=== PATIENT | female | born 1985 | race Caucasian/White ===

== ENCOUNTER 2018-05-20 18:17 | Emergency (ER) | payer MEDICAID ==
[~2018-05-20] VITALS: Ht 162.6 cm; Wt 86.2 kg
[~2018-05-20 18:17] MED LIST: AZIT-63 PO; IBUP-1984 PO; MECL-111 PO; NO HOME MEDS; ONDA4TAB59 PO
[2018-05-20 18:29] VITALS: BP 116/75
[2018-05-20] MEDS ORDERED: ipratropium/albuterol 3ml nebule NEB ONE (19:30)
[2018-05-20] MEDS ORDERED: predniSONE 20 mg tablet PO ONE (19:30)
[2018-05-20] MEDS ORDERED: ALBU6.7H INH (19:52)
[2018-05-20] MEDS ORDERED: GUAI120015 PO (19:52)
[2018-05-20] MEDS ORDERED: PRED20TA PO (19:52)
[2018-05-20] MEDS ORDERED: AZIT250T PO (19:53)
== END 2018-05-20 20:04 | disposition home or self-care (01) ==
LOC: ER 18:18
DX: J06.9 Acute upper respiratory infection, unspecified (principal); J45.909 Unspecified asthma, uncomplicated; R05 Cough; G43.909 Migraine, unspecified, not intractable, without status migrainosus; Z98.890 Other specified postprocedural states; Z79.899 Other long term (current) drug therapy; Z88.0 Allergy status to penicillin; Z88.2 Allergy status to sulfonamides; Z88.5 Allergy status to narcotic agent; Z91.040 Latex allergy status; Z88.1 Allergy status to other antibiotic agents; Z87.01 Personal history of pneumonia (recurrent)
CPT/HCPCS: 71045; 93005; 94640; 94760; 99283; J7512

== ENCOUNTER 2018-10-19 23:04 | Emergency (ER) | payer MEDICAID ==
[~2018-10-19] VITALS: Ht 162.6 cm; Wt 86.6 kg
[~2018-10-19 23:04] MED LIST changes: +ALBU6.7H INH; +AZIT250T PO; +BENZ-16 PO; +GUAI120015 PO
[2018-10-20] MEDS ORDERED: ibuprofen tablet 400 MG TABLET PO ONE (00:35)
[2018-10-20] MEDS ORDERED: NAPR-56 PO (00:58)
[2018-10-20 01:07] VITALS: BP 107/73
== END 2018-10-20 01:08 | disposition home or self-care (01) ==
LOC: ER 23:04
DX: M20.011 Mallet finger of right finger(s) (principal); G43.909 Migraine, unspecified, not intractable, without status migrainosus; Z98.890 Other specified postprocedural states; Z88.0 Allergy status to penicillin; Z88.2 Allergy status to sulfonamides; Z88.5 Allergy status to narcotic agent; Z91.040 Latex allergy status; Z88.1 Allergy status to other antibiotic agents; Z79.899 Other long term (current) drug therapy; W19.XXXA Unspecified fall, initial encounter; Y93.64 Activity, baseball; Y92.89 Other specified places as the place of occurrence of the external cause; Y99.8 Other external cause status
CPT/HCPCS: 29130; 73130; 73140; 99283

== ENCOUNTER 2018-11-07 09:06 | Outpatient (CLI) | payer MEDICAID ==
[2018-11-07 09:06] VITALS: BP 108/72
== END 2018-11-07 10:03 | disposition home or self-care (01) ==
LOC: ORTHO 09:06
PROVIDERS: ATTEND Orthopaedic Surgery
DX: M79.641 Pain in right hand (principal); J45.909 Unspecified asthma, uncomplicated; F17.210 Nicotine dependence, cigarettes, uncomplicated; Z88.0 Allergy status to penicillin; Z88.2 Allergy status to sulfonamides; Z88.5 Allergy status to narcotic agent; Z91.040 Latex allergy status; Z88.1 Allergy status to other antibiotic agents; Z91.030 Bee allergy status; Z91.048 Other nonmedicinal substance allergy status
CPT/HCPCS: 73130; G0463

== ENCOUNTER 2018-11-29 11:06 | Outpatient (CLI) | payer MEDICAID ==
[~2018-11-29 11:06] MED LIST changes: -ALBU6.7H INH; +ALBU6.7H9 INH
== END 2018-11-29 12:21 | disposition home or self-care (01) ==
LOC: ORTHO 11:06
PROVIDERS: ATTEND Orthopaedic Surgery
DX: M20.011 Mallet finger of right finger(s) (principal); Z09 Encounter for follow-up examination after completed treatment for conditions other than malignant neoplasm

== ENCOUNTER 2019-04-05 06:27 | Emergency (ER) | payer MEDICAID ==
[~2019-04-05] VITALS: Ht 162.6 cm; Wt 85.2 kg
[2019-04-05 06:32] VITALS: BP 125/85
[2019-04-05] MEDS ORDERED: ibuprofen tablet 400 MG TABLET PO ONE (06:55)
[2019-04-05] MEDS ORDERED: acetaminophen 325mg tablet PO ONE (06:55)
[2019-04-05] MEDS ORDERED: IBUP-1985 PO (06:56)
[2019-04-05] MEDS ORDERED: ACET-812 PO (06:56)
== END 2019-04-05 07:12 | disposition home or self-care (01) ==
LOC: ER 06:27
DX: S93.401A Sprain of unspecified ligament of right ankle, initial encounter (principal); G43.909 Migraine, unspecified, not intractable, without status migrainosus; Z98.890 Other specified postprocedural states; Z88.0 Allergy status to penicillin; Z88.2 Allergy status to sulfonamides; Z88.5 Allergy status to narcotic agent; Z91.040 Latex allergy status; Z79.899 Other long term (current) drug therapy; X50.1XXA Overexertion from prolonged static or awkward postures, initial encounter; Y93.89 Activity, other specified; Y92.89 Other specified places as the place of occurrence of the external cause; Y99.9 Unspecified external cause status
CPT/HCPCS: 73610; 73630; 99283

== ENCOUNTER 2021-04-07 18:43 | Emergency (ER) | payer MEDICAID ==
[~2021-04-07] VITALS: Ht 162.6 cm; Wt 89.0 kg
[~2021-04-07 18:43] MED LIST changes: +ACET-812 PO; -AZIT-63 PO; +AZIT-83 PO; +IBUP-1985 PO; -MECL-111 PO; +MECL-159 PO
[2021-04-07 19:14] VITALS: BP 147/92
== END 2021-04-07 19:40 | disposition home or self-care (01) ==
LOC: ER 18:44
DX: S60.311A Abrasion of right thumb, initial encounter (principal); S60.410A Abrasion of right index finger, initial encounter; M79.644 Pain in right finger(s); G43.909 Migraine, unspecified, not intractable, without status migrainosus; Z98.890 Other specified postprocedural states; Z88.0 Allergy status to penicillin; Z88.2 Allergy status to sulfonamides; Z88.5 Allergy status to narcotic agent; Z91.040 Latex allergy status; Z88.1 Allergy status to other antibiotic agents; Z79.2 Long term (current) use of antibiotics; Z79.899 Other long term (current) drug therapy; W19.XXXA Unspecified fall, initial encounter; Y93.89 Activity, other specified; Y92.89 Other specified places as the place of occurrence of the external cause; Y99.8 Other external cause status
CPT/HCPCS: 73130; 99283

== ENCOUNTER 2021-09-16 18:38 | Emergency (ER) | payer MEDICAID ==
[~2021-09-16] VITALS: Ht 162.6 cm; Wt 89.1 kg
--- NOTE | 2021-09-16 18:48 | NUR ---
Patient goes by "Bethel" as name.
[2021-09-16 21:09] VITALS: BP 134/97
[2021-09-16] MEDS ORDERED: dexamethasone sod phosphate 10mg/ml inj PO STA (21:22)
[2021-09-16] MEDS ORDERED: DOXYCYCLINE 100MG CAPSULE PO STA (21:22)
[2021-09-16] MEDS ORDERED: DOXY100C43 PO (21:29)
[2021-09-16] MEDS ORDERED: PRED20TA PO (21:29)
[2021-09-16] MEDS ORDERED: ALBU8.5H17 IH (21:29)
== END 2021-09-16 21:56 | disposition home or self-care (01) ==
LOC: ER 18:39
DX: J20.9 Acute bronchitis, unspecified (principal); G43.909 Migraine, unspecified, not intractable, without status migrainosus; F17.200 Nicotine dependence, unspecified, uncomplicated; Z88.0 Allergy status to penicillin; Z88.2 Allergy status to sulfonamides; Z88.5 Allergy status to narcotic agent; Z91.040 Latex allergy status; Z88.1 Allergy status to other antibiotic agents; Z79.899 Other long term (current) drug therapy
CPT/HCPCS: 71045; 99283; J1100

== ENCOUNTER 2022-03-24 15:53 | Emergency (ER) | payer MEDICAID ==
[~2022-03-24] VITALS: Ht 162.6 cm; Wt 90.0 kg
[~2022-03-24 15:53] MED LIST changes: +ALBU6.7H14 INH; -ALBU6.7H9 INH; +ALBU8.5H17 IH
[2022-03-24 16:02] VITALS: BP 132/89
== END 2022-03-24 16:56 | disposition home or self-care (01) ==
LOC: ER 15:55
DX: J20.9 Acute bronchitis, unspecified (principal); G43.909 Migraine, unspecified, not intractable, without status migrainosus; Z88.0 Allergy status to penicillin; Z88.2 Allergy status to sulfonamides; Z79.899 Other long term (current) drug therapy; Z88.5 Allergy status to narcotic agent; Z91.040 Latex allergy status; Z91.030 Bee allergy status
CPT/HCPCS: 71046; 99283

== ENCOUNTER 2022-08-22 21:54 | Emergency (ER) | payer MEDICAID ==
[~2022-08-22] VITALS: Ht 162.6 cm; Wt 87.2 kg
[2022-08-22 22:16] VITALS: BP 138/96
[2022-08-23] MEDS ORDERED: clindamycin 150mg capsule PO ONE (00:35)
[2022-08-23] MEDS ORDERED: ondansetron 4mg rapidly disintigrating tab PO ONE (00:35)
[2022-08-23] MEDS ORDERED: CLIN150C8 PO (00:35)
[2022-08-23] MEDS ORDERED: ACYC-128 PO (00:35)
== END 2022-08-23 01:18 | disposition home or self-care (01) ==
LOC: ER 21:55
DX: L03.114 Cellulitis of left upper limb (principal); R21 Rash and other nonspecific skin eruption; G43.909 Migraine, unspecified, not intractable, without status migrainosus; J45.909 Unspecified asthma, uncomplicated; Z88.0 Allergy status to penicillin; Z88.2 Allergy status to sulfonamides; Z79.899 Other long term (current) drug therapy; Z88.5 Allergy status to narcotic agent; Z91.040 Latex allergy status; Z79.1 Long term (current) use of non-steroidal anti-inflammatories (NSAID); Z79.2 Long term (current) use of antibiotics
CPT/HCPCS: 99283; 99284; A6449

== ENCOUNTER 2022-10-22 18:58 | Emergency (ER) | payer MEDICAID ==
[~2022-10-22] VITALS: Ht 165.1 cm; Wt 87.6 kg
[~2022-10-22 18:58] MED LIST changes: +CLIN150C8 PO
[2022-10-22 19:02] VITALS: BP 132/83
[2022-10-22] MEDS ORDERED: LIDOcaine 1% W/epiNEPHrine 1:100,000 20ml vial SQ STA (21:23)
[2022-10-22] MEDS ORDERED: CEPH500C2 PO (23:05)
[2022-10-22] MEDS ORDERED: cephalexin 500mg capsule PO ONE (23:10)
== END 2022-10-22 23:22 | disposition home or self-care (01) ==
LOC: ER 18:59
DX: L60.0 Ingrowing nail (principal); L03.031 Cellulitis of right toe; B35.1 Tinea unguium; G43.909 Migraine, unspecified, not intractable, without status migrainosus; J45.909 Unspecified asthma, uncomplicated; Z88.0 Allergy status to penicillin; Z88.2 Allergy status to sulfonamides
CPT/HCPCS: 11750; 99285; J3490

== ENCOUNTER 2023-06-11 12:38 | Emergency (ER) | payer BC ==
[~2023-06-11] VITALS: Ht 160 cm; Wt 80.0 kg
[~2023-06-11 12:38] MED LIST changes: +AZIT-164 PO; -AZIT-83 PO; +CLIN-214 PO; -CLIN150C8 PO; +DICL100G59 TOP; +IBUP-1986 PO; -MECL-159 PO; +MECL-302 PO
[2023-06-11] MEDS ORDERED: morphine 2 MG/ML inj. syringe IV ONE (17:00)
[2023-06-11] MEDS ORDERED: proCHLORperazine 10 MG/2 ml inj IV ONE (17:00)
[2023-06-11] MEDS ORDERED: ketorolac tromethamine 15mg/ml inj. IV ONE (17:00)
[2023-06-11] MEDS ORDERED: normal saline 1000ML IV soln IVB ONE (17:00)
[2023-06-11] MEDS ORDERED: SUMAtriptan succ. 6 MG/0.5ml vial SQ ONE (17:00)
[2023-06-11 17:52] VITALS: BP 147/95; PULSE 68; RESP 17; O2SAT 100
[2023-06-11] MEDS ORDERED: SUMA100T PO (18:37)
[2023-06-12 01:23] VITALS: TEMP 98.1
== END 2023-06-12 01:25 | disposition home or self-care (01) ==
LOC: ER 12:39
DX: G43.909 Migraine, unspecified, not intractable, without status migrainosus (principal); J45.909 Unspecified asthma, uncomplicated; Z88.0 Allergy status to penicillin; Z79.899 Other long term (current) drug therapy; Z88.2 Allergy status to sulfonamides; Z88.5 Allergy status to narcotic agent; Z79.1 Long term (current) use of non-steroidal anti-inflammatories (NSAID)
CPT/HCPCS: 96361; 96372; 96374; 96375; 99284; J0780; J1885; J2270; J3030; J7030

== ENCOUNTER 2023-09-02 18:33 | Emergency (ER) | payer BC ==
[~2023-09-02] VITALS: Ht 160 cm; Wt 82.0 kg
[2023-09-02 18:51] VITALS: BP 162/87; PULSE 100; RESP 18; TEMP 98.6; O2SAT 100
[2023-09-02 19:16] LABS: STREP A SCREEN NEGATIVE (Neg)
[2023-09-02] MEDS ORDERED: GUAI120015 PO (19:47)
[2023-09-02] MEDS ORDERED: SODI30SP3 BOTHNARES (19:47)
[2023-09-02] MEDS ORDERED: DOXY-224 PO (19:47)
== END 2023-09-02 20:00 | disposition home or self-care (01) ==
LOC: ER 18:33
DX: J01.90 Acute sinusitis, unspecified (principal); H92.02 Otalgia, left ear; Z20.822 Contact with and (suspected) exposure to COVID-19; J45.909 Unspecified asthma, uncomplicated; Z88.8 Allergy status to other drugs, medicaments and biological substances; Z88.0 Allergy status to penicillin; Z88.1 Allergy status to other antibiotic agents; Z91.040 Latex allergy status; Z88.5 Allergy status to narcotic agent; Z79.899 Other long term (current) drug therapy; Z79.2 Long term (current) use of antibiotics
CPT/HCPCS: 36415; 87081; 87811; 87880; 99283

== ENCOUNTER 2023-11-24 21:31 | Emergency (ER) | payer BC ==
[~2023-11-24] VITALS: Ht 160 cm; Wt 81.2 kg
[~2023-11-24 21:31] MED LIST changes: +SODI30SP3 BOTHNARES
[2023-11-24] MEDS ORDERED: DOXY-460 PO (23:12)
[2023-11-24 23:24] VITALS: BP 130/78; PULSE 86; RESP 18; TEMP 97.9; O2SAT 98
== END 2023-11-24 23:26 | disposition home or self-care (01) ==
LOC: ER 21:31
DX: B35.1 Tinea unguium (principal); M79.645 Pain in left finger(s); G43.909 Migraine, unspecified, not intractable, without status migrainosus; J45.909 Unspecified asthma, uncomplicated; Z88.0 Allergy status to penicillin; Z88.2 Allergy status to sulfonamides; Z88.5 Allergy status to narcotic agent; Z88.8 Allergy status to other drugs, medicaments and biological substances; Z91.040 Latex allergy status; Z88.1 Allergy status to other antibiotic agents; Z79.1 Long term (current) use of non-steroidal anti-inflammatories (NSAID); Z79.2 Long term (current) use of antibiotics; Z79.899 Other long term (current) drug therapy
CPT/HCPCS: 99283

== ENCOUNTER 2024-01-15 15:26 | Outpatient (CLI) | payer OTHER | END 2024-01-15 23:59 | disposition home or self-care (01) | LOC: MRI 15:26 | PROVIDERS: ATTEND Student in an Organized Health Care Education/Training Program | DX: M51.36 Other intervertebral disc degeneration, lumbar region (principal); M48.061 Spinal stenosis, lumbar region without neurogenic claudication; M54.50 Low back pain, unspecified | CPT/HCPCS: 72148 ==

== ENCOUNTER 2024-02-24 21:05 | Emergency (ER) | payer BC ==
[~2024-02-24] VITALS: Ht 160 cm; Wt 83.5 kg
[2024-02-24 21:34] LABS: BASOPHILS % (AUTO) 0.4 % (0-1); EOSINOPHILS # (AUTO) 0.1 X10'3 (0-0.9); EOSINOPHILS % (AUTO) 1.1 % (0-6); HEMATOCRIT 45.9 % (42.0-52.0); LYMPHOCYTES # (AUTO) 2.2 X10'3 (1.1-4.8); MEAN CORPUSCULAR HEMOGLOBIN 26.7 PG (27.0-31.0); MEAN CORPUSCULAR HGB CONC 32.7 g/dL (33.0-36.5); MEAN CORPUSCULAR VOLUME 81.6 FL (78-98); MEAN PLATELET VOLUME 7.9 FL (7.4-10.4); MONOCYTES # (AUTO) 0.5 X10'3 (0-0.9); MONOCYTES % (AUTO) 5.7 % (2-12); NEUTROPHILS # (AUTO) 5.9 X10'3 (1.8-7.7); NEUTROPHILS % (AUTO) 67.8 % (42-75); PLATELET COUNT 254 X10'3 (140-440); RED BLOOD COUNT 5.62 X10'6 (4.70-6.10); RED CELL DISTRIBUTION WIDTH 15.7 % (11.5-14.5); WHITE BLOOD COUNT 8.7 X10'3 (4.5-11.0)
[2024-02-24 21:39] LABS: BILIRUBIN,URINE NEGATIVE (Neg); CLARITY,URINE CLEAR (Clear); COLOR,URINE YELLOW (Yellow); GLUCOSE, URINE NEGATIVE (Neg); KETONES,URINE NEGATIVE (Neg); LEUKOCYTE ESTERASE ,URINE NEGATIVE (Neg); NITRITES, URINE NEGATIVE (Neg); OCCULT BLOOD,URINE NEGATIVE (Neg); PROTEIN,URINE NEGATIVE (Neg); UROBILINOGEN,URINE 0.2 E.U/dL (0.2-1.0)
[2024-02-24 21:42] LABS: UA COLLECTION TYPE CLN CATCH MIDSTREAM
[2024-02-24 21:52] LABS: ALANINE AMINOTRANSFERASE 24 U/L (12-78); ALBUMIN 3.8 G/DL (3.4-5.0); ALKALINE PHOSPHATASE 79 IU/L (46-116); ANION GAP 10 (8-16); ASPARTATE AMINO TRANSFERASE 15 U/L (10-37); BILIRUBIN,TOTAL 0.7 MG/DL (0.1-1.0); BLOOD UREA NITROGEN 13 MG/DL (7-18); BUN/CREATININE RATIO 6.5 (10.0-20.0); CALCIUM 8.5 MG/DL (8.5-10.1); CHLORIDE 107 MMOL/L (99-107); CREATININE 2.01 MG/DL (0.60-1.10); GLUCOSE 78 MG/DL (70-104); LIPASE 45 U/L (16-77); POTASSIUM 3.9 MMOL/L (3.5-5.1); SODIUM 142 MMOL/L (135-145); TOTAL CARBON DIOXIDE 24.7 MMOL/L (24-32); TOTAL PROTEIN 7.5 G/DL (6.4-8.2); eCRCL 40 ML/MIN; eGFR 37 ML/MIN
[2024-02-24] MEDS ORDERED: iohexol 300mg/ml 100ml inj. ONE (23:27)
[2024-02-24] MEDS: morphine 4 MG/ML inj SYRINge IV ONE (23:45)
[2024-02-24] MEDS: ondansetron/PF 4mg/2ml inj IV ONE (23:46)
[2024-02-25] MEDS ORDERED: NAPR-56 PO (03:39)
[2024-02-25] MEDS ORDERED: HYDR-3965 PO (03:39)
[2024-02-25 04:14] VITALS: BP 138/101; PULSE 92; RESP 17; TEMP 98.7; O2SAT 97
== END 2024-02-25 04:18 | disposition home or self-care (01) ==
LOC: ER 21:05
DX: N20.0 Calculus of kidney (principal); J45.909 Unspecified asthma, uncomplicated; Z88.0 Allergy status to penicillin; Z88.1 Allergy status to other antibiotic agents; Z88.2 Allergy status to sulfonamides; Z88.5 Allergy status to narcotic agent; Z88.6 Allergy status to analgesic agent; Z91.030 Bee allergy status
CPT/HCPCS: 36415; 74177; 80053; 81003; 83690; 85025; 96374; 96375; 99285; J2270; J2405; Q9967

== ENCOUNTER 2024-07-11 17:08 | Emergency (ER) | payer BC ==
[~2024-07-11] VITALS: Ht 160 cm; Wt 76.1 kg
[2024-07-11 17:13] VITALS: BP 152/94; PULSE 113; O2SAT 98
[2024-07-11 18:09] VITALS: RESP 16
[2024-07-11] MEDS: ketorolac trometh 15mg/ml vial 15 MG/ML ML IM ONE (18:09)
[2024-07-11 19:24] VITALS: TEMP 98.4
== END 2024-07-11 19:20 | disposition home or self-care (01) ==
LOC: ER 17:08
DX: M54.2 Cervicalgia (principal); R07.89 Other chest pain; J45.909 Unspecified asthma, uncomplicated; G43.909 Migraine, unspecified, not intractable, without status migrainosus; Z88.0 Allergy status to penicillin; Z88.1 Allergy status to other antibiotic agents; Z88.2 Allergy status to sulfonamides; Z88.5 Allergy status to narcotic agent; Z88.6 Allergy status to analgesic agent; Z91.030 Bee allergy status; V89.2XXA Person injured in unspecified motor-vehicle accident, traffic, initial encounter; Y93.89 Activity, other specified; Y92.89 Other specified places as the place of occurrence of the external cause; Y99.8 Other external cause status
CPT/HCPCS: 71045; 96372; 99283; J1885

== ENCOUNTER 2024-08-30 18:03 | Emergency (ER) | payer BC ==
[~2024-08-30] VITALS: Ht 160 cm; Wt 86.5 kg
[2024-08-30 18:18] VITALS: BP 134/94; PULSE 88; RESP 16; TEMP 97.5; O2SAT 99
== END 2024-08-30 19:30 | disposition home or self-care (01) ==
LOC: ER 18:04
DX: M25.512 Pain in left shoulder (principal); J45.909 Unspecified asthma, uncomplicated; G43.909 Migraine, unspecified, not intractable, without status migrainosus; F17.210 Nicotine dependence, cigarettes, uncomplicated; Z88.0 Allergy status to penicillin; Z88.2 Allergy status to sulfonamides; Z88.1 Allergy status to other antibiotic agents; Z88.5 Allergy status to narcotic agent; Z91.040 Latex allergy status; Z79.899 Other long term (current) drug therapy; V89.2XXA Person injured in unspecified motor-vehicle accident, traffic, initial encounter; Y93.89 Activity, other specified; Y92.89 Other specified places as the place of occurrence of the external cause; Y99.8 Other external cause status
CPT/HCPCS: 73030; 99283; A4565

== ENCOUNTER 2024-11-29 19:24 | Emergency (ER) | payer BC ==
[~2024-11-29] VITALS: Ht 160 cm; Wt 85.0 kg
[2024-11-29 19:44] VITALS: BP 148/92; PULSE 79; RESP 18; O2SAT 97
[2024-11-29 20:46] LABS: LEUKOCYTE ESTERASE ,URINE TRACE (Neg); NITRITES, URINE NEGATIVE (Neg); OCCULT BLOOD,URINE LARGE (Neg)
[2024-11-29 20:56] LABS: UA COLLECTION TYPE CLN CATCH MIDSTREAM
[2024-11-29 21:04] LABS: SQUAMOUS EPITHELIAL CELL,UR FEW /LPF (FEW)
--- NOTE | 2024-11-29 21:28 | Physician Documentation ---
History of Present Illness ~ Chief Complaint: Blood in Urine Stated Complaint: UTI SYMPTOMS Time Seen by MD: 20:32 Primary Medical Doctor: ANA GOLD HPI 39-year-old female to male transgender person, status post hysterectomy, who presents with hematuria They tell me that they were doing well today including normal activities and normal urination until 6:00 p.m.. Then they started to have blood and blood clots in the urine. No fevers, chills, abdominal pain, flank pain, dysuria, or any other associated symptoms. No trauma, they did not put anything in the urethra. They did have 1 episode couple of weeks ago that was brief and resolved on its own. They take aspirin daily, no other blood thinners. No other acute concerns Medication Reconciliation Allergies: Coded Allergies: Penicillins (Verified Allergy, Unknown, 11/29/24) Sulfa (Sulfonamide Antibiotics) (Verified Allergy, Unknown, 11/29/24) codeine (Verified Allergy, Unknown, 11/29/24) gluten (Unverified Allergy, Unknown, 11/29/24) latex (Verified Allergy, Unknown, 11/29/24) levofloxacin (Verified Allergy, Unknown, 11/29/24) Uncoded Allergies: TESSLON PEARLE (Allergy, Mild, 05/20/18) BEES (Allergy, Unknown, 12/17/16) TAPE (Allergy, Unknown, 12/17/16) Scheduled Acetaminophen (Tylenol Extra Strength), 2 TABLET PO Q6H Albuterol Sulfate (Proventil Hfa), 2 PUFFS INH Q6H Azithromycin (Zithromax), 1 TAB PO DAILY, (Reported) Azithromycin (Zithromax), 1 DOSPAK PO UD Benzonatate (Tessalon Perle), 1 CAP PO Q8H Clindamycin HCl (Clindamycin HCl CAPSULE), 1 CAP PO TID Diclofenac Sodium (Diclofenac Sodium), 1 APPLIC TOP Q6H Guaifenesin (Mucinex), 1 TAB PO Q12H Guaifenesin (Mucinex), 1 TAB PO Q12H Ibuprofen (Ibuprofen), 1 TAB PO Q6H Ibuprofen (Ibuprofen), 1 TAB PO Q8H Ibuprofen* (Motrin*), 800 MG PO QID Ondansetron Hcl (Ondansetron Hcl), 4 MG PO Q8H PRN N/V Sodium Chloride (Saline Nasal [place]), 1 SPRAYS BOTHNARES Q6H Scheduled PRN Albuterol Sulfate (Proair Hfa), 2 PUFFS IH Q4H PRN for SOB or wheezing Meclizine HCl (Meclizine HCl), 1 TAB PO Q8H PRN for dizziness/vertigo Miscellaneous Medications Home Med List (No Home Medications), (Reported) Past Medical History Past Medical History: Migraine, Arrhythmia, Asthma, Psoriasis, Herpes Zoster Past Surgical History: no surgical history, orthopedic surgeries Alcohol Use: Sober Drug Use: none Lives with: Spouse Lives In: Home Occupation: employed, student Review of Systems Constitutional: Denies: fever Gastrointestinal: Denies: abdominal pain, nausea Genitourinary: Reports: hematuria; Denies: dysuria Physical Exam Vital Signs: Temperature: 98.3, Source: Oral, Heart Rate: 79, Respiratory Rate: 18, BP: 148/92, Pulse Oximetry: 97, Weight: 85.000 Oxygen Flow Rate: 0 Physical Exam General: This is a pleasant and well-appearing young person sitting calmly in bed, family at bedside HEENT: Atraumatic, oropharynx is moist Heart: Regular rate and rhythm, normal-appearing peripheral perfusion Lungs: normal work of breathing, normal oxygen saturation on room air Abdomen: Soft, nondistended, nontender all quadrants including in the suprapubic region Back: No CVA tenderness to percussion Skin: Warm and dry, does not appear pale Neuro: Alert and oriented, no focal deficits Psychiatric: Calm and cooperative with exam Progress Results/Orders Results/Orders Vital Signs 11/29/24 11/29/24 19:44 21:31 Temp 98.3 98.3 Pulse 79 Resp 18 B/P (MAP) 148/92 Pulse Ox 97 O2 Flow Rate 0 Laboratory Tests Test 11/29/24 19:57 Urine Specimen Description Cln catch midstream Urine Color Yellow Urine Clarity Clear Urine pH 7.5 Urine Specific [place] <=1.005 Urine Protein Trace Urine Glucose (UA) Negative Urine Ketones Negative Urine Occult Blood Large H Urine Nitrite Negative Urine Bilirubin Negative Urine Urobilinogen 0.2 Urine Leukocyte Esterase Trace H Urine RBC 3-10 Urine WBC 0-4 Urine Squamous Epithelial Cells Few Urine Bacteria None seen Urine Culture Indicated Indicated Volume Urine Centrifuged 10 ml Urine Comment Microbiology Date/Time Source Procedure Growth Status 11/29/24 21:05 Urine Clean Catch Midstream Urine Culture - Preliminary Culture received. Resulted Medical Decision Making Additional Comment Differential includes UTI, kidney stone, bladder mass, acute blood loss anemia, trauma Assessment The patient presents with hematuria, with no other associated symptoms. On exam they have no abdominal pain, flank pain, fever, or any other concerning findings. Urinalysis shows blood but no evidence of infection. Recent viral infection or strep throat to suggest autoimmune process. Given their lack of any other associated symptoms, I do not feel that anymore emergent workup is indicated. They were reassured, discharged with home care instructions and close outpatient follow up. If they do you have significantly worsening symptoms they will either return here or follow up with the primary care doctor for abdominal imaging and blood work. Departure Time of Disposition: 21:26 Disposition: 01 HOME / SELF CARE / HOMELESS Impression: Primary Impression: Hematuria Condition: Stable Discharge Instructions: Hematuria, Adult Referrals: NO PRIMARY CARE PROVIDER (PCP) Education Educated: Patient Educated regarding: diagnosis, treatment, need for follow up Signature Scribe Signature: ron Attestation: ANTHONY Roberts MD Nov 29, 2024 21:28
[2024-11-29 21:31] VITALS: TEMP 98.3
== END 2024-11-29 21:32 | disposition home or self-care (01) ==
LOC: ER 19:25
DX: R31.9 Hematuria, unspecified (principal); G43.909 Migraine, unspecified, not intractable, without status migrainosus; F64.0 Transsexualism; J45.909 Unspecified asthma, uncomplicated; Z88.0 Allergy status to penicillin; Z88.2 Allergy status to sulfonamides; Z88.5 Allergy status to narcotic agent; Z88.1 Allergy status to other antibiotic agents; Z91.040 Latex allergy status; Z79.899 Other long term (current) drug therapy; Z79.82 Long term (current) use of aspirin
CPT/HCPCS: 81001; 87088; 99283